=== PATIENT | female | born 2000 | race Caucasian/White ===

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

== ENCOUNTER 2022-03-29 12:13 | Emergency (ER) | payer OTHER ==
[2022-03-29 12:49] LABS: #Basophils 0.1 thou/uL (0.0-0.2); #Eosinphils 0.5 thou/uL (0.0-0.7); #Lymphocytes 1.4 thou/uL (1.20-3.40); #Monocytes 0.3 thou/uL (0.11-0.59); #Neutrophils 5.1 thou/uL (1.40-6.50); %Basophils 0.9 % (0.0-1.0); %Eosinophils 6.2 % (0.0-10.0); %Lymphocytes 19.2 % (28.0-48.0); %Monocytes 4.6 % (0.0-4.0); %Neutrophils 69.1 % (31.0-61.0); Mean Corpuscular HGB CONC 34.6 g/dL (32.0-36.0); Mean Corpuscular Hemoglobin 31.9 pg (25.0-35.0); Mean Platelet Volume 6.7 fL (7.4-10.4); Platelet Count 285 10x3/uL (130-400); Red Blood Cell (RBC) Count 4.72 mill/uL (4.00-5.20); White Blood Cell (WBC) Count 7.4 10x3/uL (4.8-10.8)
[2022-03-29 13:12] LABS: BHCG - Serum Negative (NEGATIVE); Pregs Control Background? CLEAR/WHITE (CLR/WHITE); Pregs Control Bar Appear? YES (CONTROL BAR)
[2022-03-29 13:16] LABS: ALT (SGPT) 10 U/L (8-55); AST (SGOT) 20 U/L (5-30); Albumin 4.5 g/dL (3.5-5.0); Alkaline Phosphatase 75 U/L (40-100); Anion Gap 10 mmol/L (10-20); BUN (Urea Nitrogen) 12 mg/dL (8.4-21.0); Bilirubin, Total 0.7 mg/dL (0.2-1.2); Calc. Creatinine Clearance 0 mL/min (70-130); Calcium 9.6 mg/dL (7.8-10.44); Carbon Dioxide 24 mmol/L (22-29); Chloride 107 mmol/L (98-107); Estimated GFR 123; Globulin 2.9 g/dL (2.4-3.5); Glucose 90 mg/dL (70-105); Protein, Total 7.4 g/dL (6.0-8.3); Sodium 137 mmol/L (136-145)
[2022-03-29 14:31] LABS: Bacteria/HPF None Seen HPF (None Seen); Bilirubin Negative (Negative); Blood, Urine 3+ (Negative); Clarity Clear (Clear); Glucose, Urine (Dipstick) Normal (Negative); Ketone, Urine Negative (Negative); Leukocyte Negative Leu/uL (Negative); Nitrite Negative (Negative); Protein, Urine (Dipstick) 10 mg/dL (Neg-Trace); RBC/HPF Greater than 50 HPF (0-3); Specific Gravity, Urine 1.026 (1.002-1.036); Squamous Epithelial 0-3 HPF (0-3); Urobilinogen Normal mg/dL (Less than 2); WBC/HPF 0-3 HPF (0-3); pH, Urine 6.5 (5.0-9.0)
[2022-03-29 14:34] LABS: Pregnancy Test - Urine (BHCG) Negative (Negative)
[2022-03-29 14:35] LABS: Pregu Control Background? CLEAR/WHITE (CLR/WHITE); Pregu Control Bar Appear? YES (CONTROL BAR); Specific Gravity 1.026 (1.002-1.036)
== END 2022-03-29 14:57 | disposition home or self-care (01) ==
LOC: ERS 12:13
DX: N93.9 Abnormal uterine and vaginal bleeding, unspecified (principal); F17.290 Nicotine dependence, other tobacco product, uncomplicated
CPT/HCPCS: 36415; 80053; 81003; 81015; 81025; 84703; 85025; 99284